=== PATIENT | male | born 1975 | race Caucasian/White ===

== ENCOUNTER 2017-07-13 16:26 | Emergency (ER) | payer SELFPAY ==
[~2017-07-13] VITALS: Ht 182.9 cm; Wt 110.3 kg
[2017-07-13 17:26] LABS: HEMATOCRIT 43.1 % (38.0-50.0); HEMOGLOBIN 14.8 G/DL (12.5-16.6); MCH 31.1 PG (29.0-34.0); MCHC 34.3 G/DL (30.0-36.0); MCV 90.5 FL (86-99); PLATELET COUNT 215 K/uL (156-360); RBC DIS.WIDTH-CV 13.2 % (11.8-14.6); RBC DIS.WIDTH-SD 44.2 % (39-53); RED BLOOD COUNT 4.76 M/uL (4.00-5.50); WHITE BLOOD COUNT 14.7 K/uL (4.1-10.2)
[2017-07-13 17:34] LABS: APPEARANCE CLEAR ((CLEAR)); BILIRUBIN NEGATIVE; BLOOD NEGATIVE; COLOR YELLOW ((YELLOW)); GLUCOSE (STRIP) NEGATIVE; KETONES NEGATIVE; LEUKOCYTES NEGATIVE; NITRITE NEGATIVE; PROTEIN (STRIP) 30; SPECIFIC GRAVITY 1.026 (1.000-1.030); UCUL ADDED? NO
[2017-07-13 17:35] LABS: ALBUMIN 4.2 g/dL (3.2-4.8); CHLORIDE 101 mEq/L (99-109); POTASSIUM 4.3 mEq/L (3.7-5.4); SODIUM 134 mEq/L (136-147)
[2017-07-13 17:37] LABS: GLUCOSE 96 mg/dL (70-99); TOTAL PROTEIN 7.7 g/dL (6.4-8.3)
[2017-07-13 17:41] LABS: ALKALINE PHOSPHATASE 78 IU/L (3-129); CREATININE 1.1 mg/dL (0.6-1.3); GFR ESTIMATE (CALCULATED) > 59 mL/min/ (58.99-99999)
[2017-07-13 17:42] LABS: UREA NITROGEN (BUN) 13 mg/dL (9-23)
[2017-07-13 17:43] LABS: AST (GOT) 19 IU/L (2-34)
[2017-07-13 17:44] LABS: ALT (GPT) 29 IU/L (3-49); LIPASE 14 U/L (1.0-51.0)
[2017-07-13] MEDS ORDERED: CIPRO500 MG PO (18:51)
[2017-07-13] MEDS ORDERED: FLAGYL500 MG PO (18:51)
[2017-07-13 20:48] VITALS: BP 144/78
== END 2017-07-13 20:49 | disposition home or self-care (01) ==
LOC: EME 16:26
DX: K57.92 Diverticulitis of intestine, part unspecified, without perforation or abscess without bleeding (principal); D72.829 Elevated white blood cell count, unspecified; F17.200 Nicotine dependence, unspecified, uncomplicated; Z85.6 Personal history of leukemia
CPT/HCPCS: 74177; 80053; 81003; 83690; 85027; 99281; 99285; J0744; J1885; J7030; S0030

== ENCOUNTER 2017-07-24 15:26 | Emergency (ER) | payer SELFPAY ==
[~2017-07-24] VITALS: Ht 182.9 cm; Wt 102.8 kg
[~2017-07-24 15:26] MED LIST: CIPRO500 MG PO; FLAGYL500 MG PO
[2017-07-24 17:02] LABS: BASOPHIL (%) 0.5 % (0-1); EOSINOPHIL (%) 1.6 % (0-5); EOSINOPHIL COUNT 0.1 K/uL (0-0.3); HEMATOCRIT 47.2 % (38.0-50.0); HEMOGLOBIN 15.7 G/DL (12.5-16.6); IMMATURE GRANULOCYTE (%) 0.4 % (0.0-0.7); LYMPHOCYTE (%) 32.1 % (15-42); LYMPHOCYTE COUNT 2.6 K/uL (1.0-2.8); MCH 30.3 PG (29.0-34.0); MCHC 33.3 G/DL (30.0-36.0); MCV 91.1 FL (86-99); MONOCYTE (%) 9.5 % (3-12); MONOCYTE COUNT 0.8 K/uL (0-0.8); NEUTROPHIL (%) 55.9 % (45-76); NEUTROPHIL COUNT 4.5 K/uL (1.8-6.4); RBC DIS.WIDTH-CV 13.2 % (11.8-14.6); RBC DIS.WIDTH-SD 44.6 % (39-53); RED BLOOD COUNT 5.18 M/uL (4.00-5.50); WHITE BLOOD COUNT 8.1 K/uL (4.1-10.2)
[2017-07-24 17:05] LABS: PLATELET COUNT 358 K/uL (156-360)
[2017-07-24 17:25] LABS: CHLORIDE 104 mEq/L (99-109); POTASSIUM 4.3 mEq/L (3.7-5.4); SODIUM 139 mEq/L (136-147)
[2017-07-24 17:26] LABS: GLUCOSE 89 mg/dL (70-99)
[2017-07-24 17:30] LABS: GFR ESTIMATE (CALCULATED) > 59 mL/min/ (58.99-99999)
[2017-07-24 17:31] LABS: UREA NITROGEN (BUN) 14 mg/dL (9-23)
[2017-07-24] MEDS ORDERED: NORCO 5/3251 TABLET PO (18:39)
[2017-07-24] MEDS ORDERED: BACTRIM,SEPT1 TABLET PO (18:40)
[2017-07-24] MEDS ORDERED: KEFLEX500 MG PO (18:40)
[2017-07-24 18:49] VITALS: BP 162/100
== END 2017-07-24 18:56 | disposition home or self-care (01) ==
LOC: EME 15:26
PROVIDERS: Physician Assistant
PROC: 0H9NXZZ Drainage of Left Foot Skin, External Approach (ICD-10-PCS; principal; 2017-07-24)
DX: L02.612 Cutaneous abscess of left foot (principal); L03.116 Cellulitis of left lower limb; K57.92 Diverticulitis of intestine, part unspecified, without perforation or abscess without bleeding; F17.200 Nicotine dependence, unspecified, uncomplicated
CPT/HCPCS: 80048; 83605; 85025; 87040; 99281; 99283